=== PATIENT | male | born 1985 | race Caucasian/White ===

== ENCOUNTER 2017-11-15 16:37 | Emergency (ER) | payer BC ==
[~2017-11-15] VITALS: Ht 172.7 cm; Wt 100.0 kg
[~2017-11-15 16:37] MED LIST: ALFU1TAB10 PO; IBUP-232 PO; LORTA5 PO; Z.0.NO CURRENT MEDS
[2017-11-15 16:40] VITALS: BP 142/89; PULSE 81; RESP 16; TEMP 97.7; O2SAT 99
[2017-11-15] MEDS ORDERED: SODIUM CHLOR 0.9% 1000 ML INJ 1,000 ML IV ONE (17:07)
[2017-11-15] MEDS ORDERED: ACETAMINOPHEN 500 MG CPLT PO ONE (17:15)
--- NOTE | 2017-11-15 17:17 | PD ---
HPI Chief Complaint: Neuro Symptoms/ Deficits Time Seen by Provider: 17:07 Travel History International Travel<30 days: No Contact w/Intl Traveler<30days: No Traveled to known affect area: No History of Present Illness HPI 32-year-old male presents emergency department by private vehicle for concerns of a syncopal episode that occurred about 3:45 PM this afternoon. Patient states that he was walking into his room where he passed out in his head on the ground and family thought he had a seizure. Patient denies tongue biting or urinary incontinence. Patient does not have a history of seizure activity. States that he developed a headache today located in the occipital region with radiation to the frontal aspect. Patient states that his headache now is located in the posterior aspect of his eye. It is rated 7/10 in severity. Patient says that he remembers feeling 'shaky' while he was on the ground and states he was "out" for 1 minute. Patient says he has a history of syncopal episode secondary to dehydration but this has not occurred in some time. Patient primary care physician is Dr. Lara. Patient does not follow any other specialist. Patient denies chronic medical issues medication use aside from the above-mentioned. PFSH Past Medical History Asthma: Yes Blood Disorders: No Anxiety: No Depression: No Cancer: No Cardiovascular Problems: No Endocrine: No Genitourinary: No Headaches: Yes Immune Disorder: No Musculoskeletal: No Psychiatric: No Reproductive: No Migraines: Yes Past Surgical History Abdominal Surgery: Yes (hernia) Other Surgery: Yes (HERNIA REPAIR) Social History Alcohol Use: No Tobacco Use: No Substance Use: No Allergies-Medications (Allergen,Severity, Reaction): Coded Allergies: shrimp (Unverified Allergy, Severe, rash, 11/15/17) Reported Meds & Prescriptions Reported Meds & Active Scripts Active No Active Prescriptions or Reported Medications Review of Systems Except as stated in HPI: all other systems reviewed are Neg Physical Exam Narrative GENERAL: Well-developed, well-nourished in no apparent distress, resting comfortably but SKIN: Focused skin assessment warm/dry. HEAD: Atraumatic. Normocephalic. Small contusion to right forehead EYES: Pupils equal and round. No scleral icterus. No injection or drainage. EOMI. no photophobia ENT: No nasal bleeding or discharge. Mucous membranes pink and moist. NECK: Trachea midline. No JVD. No midline tenderness CARDIOVASCULAR: Regular rate and rhythm. No murmur appreciated. RESPIRATORY: No accessory muscle use. Clear to auscultation. Breath sounds equal bilaterally. GASTROINTESTINAL: Abdomen soft, non-tender, nondistended. Hepatic and splenic margins not palpable. No CVA tenderness MUSCULOSKELETAL: No obvious deformities. No clubbing. No cyanosis. No edema. NEUROLOGICAL: Awake and alert. No obvious cranial nerve deficits. Motor grossly within normal limits. Normal speech. PSYCHIATRIC: Appropriate mood and affect; insight and judgment normal. Data Data Last Documented VS Vital Signs Date Time Temp Pulse Resp B/P (MAP) Pulse Ox O2 Delivery O2 Flow Rate FiO2 11/15/17 19:53 11/15/17 17:41 82 16 92 17 11/15/17 16:40 97.7 99 Orders Orders Electrocardiogram (11/15/17 17:07) Complete Blood Count With Diff (11/15/17 17:07) Comprehensive Metabolic Panel (11/15/17 17:07) Magnesium (Mg) (11/15/17 17:07) Ckmb (Isoenzyme) Profile (11/15/17 17:07) Troponin I (11/15/17 17:07) Act Partial Throm Time (Ptt) (11/15/17 17:07) Prothrombin Time / Inr (Pt) (11/15/17 17:07) Urinalysis - C+S If Indicated (11/15/17 17:07) Chest, Single Ap (11/15/17 17:07) Sodium Chlor 0.9% 1000 Ml Inj (Ns 1000 M (11/15/17 17:07) Acetaminophen (Tylenol) (11/15/17 17:15) Orthostatic Vital Signs (11/15/17 17:17) CKMB (11/15/17 17:00) CKMB% (11/15/17 17:00) Ed Discharge Order (11/15/17 19:00) Labs Laboratory Tests Test 11/15/17 17:00 11/15/17 17:10 White Blood Count 6.3 TH/MM3 Red Blood Count 5.08 MIL/MM3 Hemoglobin 15.6 GM/DL Hematocrit 44.8 % Mean Corpuscular Volume 88.1 FL Mean Corpuscular Hemoglobin 30.8 PG Mean Corpuscular Hemoglobin Concent 34.9 % Red Cell Distribution Width 13.8 % Platelet Count 236 TH/MM3 Mean Platelet Volume 9.1 FL Neutrophils (%) (Auto) 58.6 % Lymphocytes (%) (Auto) 26.4 % Monocytes (%) (Auto) 8.8 % Eosinophils (%) (Auto) 5.2 % Basophils (%) (Auto) 1.0 % Neutrophils # (Auto) 3.7 TH/MM3 Lymphocytes # (Auto) 1.7 TH/MM3 Monocytes # (Auto) 0.6 TH/MM3 Eosinophils # (Auto) 0.3 TH/MM3 Basophils # (Auto) 0.1 TH/MM3 CBC Comment DIFF FINAL Differential Comment Prothrombin Time 9.5 SEC Prothromb Time International Ratio 0.9 RATIO Activated Partial Thromboplast Time 24.8 SEC Blood Urea Nitrogen 11 MG/DL Creatinine 1.28 MG/DL Random Glucose 99 MG/DL Total Protein 7.4 GM/DL Albumin 3.8 GM/DL Calcium Level 9.2 MG/DL Magnesium Level 2.2 MG/DL Alkaline Phosphatase 76 U/L Aspartate Amino Transf (AST/SGOT) 39 U/L Alanine Aminotransferase (ALT/SGPT) 63 U/L Total Bilirubin 0.3 MG/DL Sodium Level 139 MEQ/L Potassium Level 4.0 MEQ/L Chloride Level 105 MEQ/L Carbon Dioxide Level 26.9 MEQ/L Anion Gap 7 MEQ/L Estimat Glomerular Filtration Rate 64 ML/MIN Total Creatine Kinase 233 U/L Creatine Kinase MB 1.6 NG/ML Troponin I LESS THAN 0.02 NG/ML Urine Color LIGHT-YELLOW Urine Turbidity CLEAR Urine pH 6.5 Urine Specific [place] 1.010 Urine Protein NEG mg/dL Urine Glucose (UA) NEG mg/dL Urine Ketones NEG mg/dL Urine Occult Blood NEG Urine Nitrite NEG Urine Bilirubin NEG Urine Urobilinogen LESS THAN 2.0 MG/DL Urine Leukocyte Esterase NEG Urine Mucus FEW /lpf Microscopic Urinalysis Comment CULT NOT INDICATED MDM Medical Decision Making Medical Screen Exam Complete: Yes Emergency Medical Condition: Yes Differential Diagnosis Dehydration, syncope, CA, PE, TIA Narrative Course 32 male presents emergency department after syncopal episode that occurred about 3:45 PM today. Says he was walking for a door and he fell hitting the floor. Currently he complains of headache located in the posterior aspect with radiation to the front right forehead area. He denies diplopia, nausea, vomiting. Vital signs stable. Labs and imaging studies ordered. I discussed this case with my attending, Dr. Sharif who recommended to defer CT images based off of H&P today. Last Impressions Chest X-Ray 11/15/17 1707 Signed Impressions: Service Date/Time: Wednesday, November 15, 2017 17:16 - CONCLUSION: 1. No acute cardiopulmonary findings. Maverick Villa MD Orthostatics negative. CBC & BMP Diagram 11/15/17 17:00 Total Protein 7.4, Albumin 3.8, Calcium Level 9.2, Magnesium Level 2.2, Alkaline Phosphatase 76, Aspartate Amino Transf (AST/SGOT) 39 H, Alanine Aminotransferase (ALT/SGPT) 63, Total Bilirubin 0.3 Labs are stable. As discussed the findings with the patient and today. Patient states he feels fine and would like to go home. Advised to monitor for signs of brain injury to include nausea, vomiting, personality changes. Advised to ensure proper hydration and follow up with his PCP. Consider neurology follow up. Diagnosis Primary Impression: Contusion Qualified Codes: S00.03XA - Contusion of scalp, initial encounter Referrals: Primary Care Physician Departure Forms: Tests/Procedures, Work Release Enter return to work date: Nov 17, 2017 Additional Instructions: Ensure adequate fluid intake and proper nutrition. Avoid work for the next day to feel like you are completely recuperated. If you develop nausea, vomiting, personality changes or increased headache return to the emergency department immediately. He may take Tylenol or Motrin per package instructions for your headache. Scripts No Active Prescriptions or Reported Meds Disposition: 01 DISCHARGE HOME Condition: Stable Marybeth Mo Nov 15, 2017 17:17
[2017-11-15 17:41] VITALS: BP 139/75; RESP 16; RESP 17
[2017-11-15 17:46] LABS: AUTOMATED NEUTROPHIL # 3.7 TH/MM3 (1.8-7.7); BASOPHIL # 0.1 TH/MM3 (0-0.2); EOSINOPHIL # 0.3 TH/MM3 (0-0.4); EOSINOPHIL % 5.2 % (0.0-4.0); HEMATOCRIT 44.8 % (39.0-51.0); HEMOGLOBIN 15.6 GM/DL (13.0-17.0); LYMPH % 26.4 % (9.0-44.0); LYMPHOCYTE # 1.7 TH/MM3 (1.0-4.8); MEAN CELL VOLUME 88.1 FL (80.0-100.0); MEAN CORPUSCULAR HEMOGLOBIN 30.8 PG (27.0-34.0); MEAN CORPUSCULAR HGB CONC 34.9 % (32.0-36.0); MEAN PLATELET VOLUME 9.1 FL (7.0-11.0); MONO % 8.8 % (0.0-8.0); MONOCYTE # 0.6 TH/MM3 (0-0.9); NEUT % 58.6 % (16.0-70.0); PLATELET COUNT 236 TH/MM3 (150-450); RED BLOOD COUNT 5.08 MIL/MM3 (4.50-5.90); RED CELL DISTRIBUTION WIDTH 13.8 % (11.6-17.2); WHITE BLOOD COUNT 6.3 TH/MM3 (4.0-11.0)
--- NOTE | 2017-11-15 17:48 | RADRPT ---
EXAM DATE/TIME: 11/15/2017 17:16 [facility] COMPARISON: No previous studies available for comparison. INDICATIONS : Chest discomfort. MEDICAL HISTORY : None. SURGICAL HISTORY : None. ENCOUNTER: Initial ACUITY: 1 day PAIN SCORE: 6/10 LOCATION: Bilateral chest FINDINGS: A single view of the chest demonstrates the lungs to be symmetrically aerated without evidence of mas s, infiltrate or effusion. The cardiomediastinal contours are unremarkable. Osseous structures are intact. CONCLUSION: 1. No acute cardiopulmonary findings. Maverick Villa MD on November 15, 2017 at 17:45 Board Certified Radiologist. This report was verified electronically.
[2017-11-15 17:59] LABS: BILIRUBIN, URINE NEG (NEG); BLOOD, URINE NEG (NEG); GLUCOSE,URINE NEG (NEG); KETONE, URINE NEG (NEG); MUCUS URINE FEW /lpf (OCC); NITRITE,URINE NEG (NEG); PH, URINE 6.5 (5.0-8.5); URINE COLOR LIGHT-YELLOW (YELLW/STRAW); URINE LEUKOCYTE ESTERASE NEG (NEG)
[2017-11-15 18:00] LABS: INTERNATIONAL NORMALIZED RATIO 0.9 RATIO; PROTHROMBIN TIME - PATIENT 9.5 SEC (9.8-11.6)
[2017-11-15 18:10] LABS: ALBUMIN 3.8 GM/DL (3.4-5.0); ALT (GPT) 63 U/L (12-78); AST (GOT) 39 U/L (15-37); BICARBONATE 26.9 MEQ/L (21.0-32.0); BLOOD UREA NITROGEN 11 MG/DL (7-18); CALCIUM 9.2 MG/DL (8.5-10.1); CHLORIDE 105 MEQ/L (98-107); CREATININE 1.28 MG/DL (0.60-1.30); GLOMERULAR FILTRATION RATE 64 ML/MIN (>89); GLUCOSE,RANDOM 99 MG/DL (74-106); MAGNESIUM 2.2 MG/DL (1.5-2.5); SODIUM (NA) 139 MEQ/L (136-145)
[2017-11-15 18:16] LABS: ALKALINE PHOSPHATASE 76 U/L (45-117); TOTAL BILIRUBIN ADULT 0.3 MG/DL (0.2-1.0); TOTAL PROTEIN 7.4 GM/DL (6.4-8.2); TROPONIN I LESS THAN 0.02 NG/ML (0.02-0.05)
--- NOTE | 2017-11-16 16:31 | EKG ---
Date Performed: 11/15/2017 Time Performed: 17:03:26 PTAGE: 32 years EKG: Sinus rhythm NORMAL ECG NO PREVIOUS TRACING DOCTOR: Kobe Segura Interpretating Date/Time 11/16/2017 16:29:48
== END 2017-11-15 20:22 | disposition home or self-care (01) ==
LOC: NEPC 16:37
DX: S00.03XA Contusion of scalp, initial encounter (principal); R55 Syncope and collapse; W19.XXXA Unspecified fall, initial encounter; Y93.01 Activity, walking, marching and hiking
CPT/HCPCS: 71045; 80053; 81001; 82550; 82552; 83735; 84484; 85025; 85610; 85730; 93005; 99284; J7030